=== PATIENT | male | born 2000 | race Two or more races ===

== ENCOUNTER 2020-08-23 18:35 | Emergency (ER) | payer MEDICAID, OTHER ==
[~2020-08-23] VITALS: Ht 177.8 cm; Wt 108.9 kg
[~2020-08-23 18:35] MED LIST: SINGULAR
[2020-08-23 18:37] VITALS: BP 159/79
== END 2020-08-23 22:42 | disposition left against medical advice (07) ==
LOC: ER 18:35
DX: K62.89 Other specified diseases of anus and rectum (principal); Z53.21 Procedure and treatment not carried out due to patient leaving prior to being seen by health care provider